=== PATIENT | female | born 1950 | race Caucasian/White ===

== ENCOUNTER → 2017-01-24 | Outpatient (CLI) | payer MEDICARE, OTHER ==
--- NOTE | ~2017-01-24 | BD1 ---
[facility] A Service of [facility] RADIOLOGY TEXT RESULTS PATIENT: JEFFY HARRIS LOCATION: [facility] : 48 UNIT #: [id number] AGE: [address]: Lindsay Dunlap MD SEX: F ORDER DR: [id number] [facility] [address] [place], [place] [address] [id number] O MR#: [id number] Acc #: [id number] NAME: JEFFY HARRIS. : 1950 SEX: F STUDY DATE/TIME: 01/24/2017 10:01 UNIT: [facility] ROOM: STUDY DESCRIPTION: BD Dexa Bone Dens 1+ Site Attending Physician: Lindsay Dunlap M.D. Referring Physician: Lindsay Dunlap M.D. Ordering Physician: Lindsay Dunlap M.D. Primary Care Physician: Lindsay Dunlap M.D. MEDICAL IMAGING REPORT This report is preliminary unless electronic signature is present EXAM DXA scan 01/24/2017 HISTORY Status post menopause with history of hormone replacement therapy. Osteopenia. Hypertension with blood pressure medication for 10 years. Family history of osteoporosis in mother. FINDINGS Bone mineral density in the lumbar spine from L1-L4 is 0.914 g/cm2 which is 1.2 standard deviations below the mean when compared to the young adult reference population which is characteristic of osteopenia. This is 0.7 standard deviations above the mean when compared to the age-matched population. Compared with 08/15/2014, there has been an increase in bone mineral density in the lumbar spine of 3.4%. Bone mineral density in the left femoral neck was 0.711 g/cm2 which is 1.2 standard deviations below the mean when compared to the young adult reference population which is characteristic of osteopenia. This is 0.4 standard deviations above the mean when compared to the age-matched population. Compared with 08/15/2014, there has been an increase in bone mineral density in the left hip of 1.2%. IMPRESSION Bone mineral density in the lumbar spine and left hip characteristic of osteopenia. Compared with 08/15/2014 there has been an increase in bone mineral density in the lumbar spine and the left hip. Dictated by... Soy Elmore M.D. THIS IS AN ELECTRONICALLY VERIFIED REPORT Soy Elmore M.D. at 01/25/2017 7:46 AM [facility] A Service of [facility] RADIOLOGY TEXT RESULTS PATIENT: JEFF[facility]ARRIS [id number] [birth year] UNIT #: [id number] AGE: [address]: Lindsay Dunlap MD SEX: F ORDER DR: Bridget TD: 01/24/2017 12:22 JOB #: [id number] MEDICAL IMAGING REPORT Page 1 of 1 COPY
--- NOTE | ~2017-01-24 | MY29 ---
[facility] A Service of [facility] RADIOLOGY TEXT RESULTS PATIENT: JEFFY HARRIS LOCATION: [facility] : 48 UNIT #: [id number] AGE: [address]: Lindsay Dunlap MD SEX: F ORDER DR: [id number] [facility] [address] [place], [place] [address] [id number] O MR#: [id number] Acc #: [id number] NAME: JEFFY HARRIS : 1950 SEX: F STUDY DATE/TIME: 01/24/2017 9:50 UNIT: [facility] ROOM: STUDY DESCRIPTION: MY CONCEPCIÓN SCREENING W/ CAD BILAT Attending Physician: Lindsay Dunlap M.D. Referring Physician: Lindsay Dunlap M.D. Ordering Physician: Lindsay Dunlap M.D. Primary Care Physician: Lindsay Dunlap M.D. MEDICAL IMAGING REPORT This report is preliminary unless electronic signature is present EXAM 1. Bilateral digital screening with CAD. 2. Bilateral breast tomosynthesis. INDICATIONS Routine screening. No current complaints. No family history of breast cancer. COMPARISON 01/15/2016; 08/15/2014. FINDINGS MLO and CC digital views of each breast were obtained. The exam was viewed FDA-approved CAD device. There are scattered fibroglandular densities present. There are no masses or abnormal calcifications. IMPRESSION No change and no evidence of malignancy. Patients over the age of 40 are entered into a reminder system with target due date for the next mammogram. A result letter will also be sent to the patient. BIRADS: 1 Negative. Dictated by... Brad Combs M.D. THIS IS AN ELECTRONICALLY VERIFIED REPORT Brad Combs M.D. at 01/24/2017 3:10 PM MICHAEL/kiana [facility] A Service of [facility] RADIOLOGY TEXT RESULTS PATIENT: JEFFY HARRIS LOCATION: [facility] : 48 UNIT #: [id number] AGE: [address]: Lindsay Dunlap MD SEX: F ORDER DR: TD: 01/24/2017 14:14 JOB #: [id number] MEDICAL IMAGING REPORT Page 1 of 1 COPY
== END | disposition home or self-care (01) ==
LOC: CWCC 09:00
DX: Z12.31 Encounter for screening mammogram for malignant neoplasm of breast (principal); M85.9 Disorder of bone density and structure, unspecified; M85.89 Other specified disorders of bone density and structure, multiple sites; Z78.0 Asymptomatic menopausal state; Z79.890 Hormone replacement therapy
CPT/HCPCS: 77080; G0202